=== PATIENT | female | born 1965 | race Caucasian/White ===

== ENCOUNTER → 2017-06-23 | Day surgery (SDC) | payer OTHER ==
[~2017-06-23] VITALS: Ht 170.2 cm; Wt 87.0 kg
[~2017-06-23] MED LIST: CHLORHEXIDINE GLUCONATE 2 % 1 PACK (2 CLOTHS) TOPICAL PRN; COMB.05D5 T-DERMAL; FAMOTIDINE 20 MG/2 ML VIAL ONE; INSULIN HUMAN REGULAR 1,000 UNITS/10 ML VIAL SQ PRN; LACTATED RINGER'S 1000 ML IV PRN; METOPROLOL TARTRATE 25 MG TAB PO PRN; MIDAZOLAM HCL 2 MG/2 ML VIAL ONE; POVIDONE IODINE 5% (ANTISEPSIS KIT) 4 APPLICATIONS EACH NARE PRN; SODIUM CHLORID 0.9% 500 ML IV PRN; SODIUM CHLORIDE 0.9% INJ 50 ML ONE; ceFAZolin 1,000 MG/NS 100 ML IV SCH; ceFAZolin INJ 1,000 MG VIAL ONE
--- NOTE | 2017-06-23 10:05 | PD.OP ---
Operative Report Date of Surgery: Jun 23, 2017 Preoperative Diagnosis: (1) Endometrial polyp (2) Postmenopausal bleeding Postoperative Diagnosis: (1) Postmenopausal bleeding (2) Endometrial polyp Procedure: hysteroscopy with polypectomy by MyoSure Lite Anesthesia: Dr. Jayda Concepcion by LMA Surgeon: Nerissa Vuong Conservation Science Officer(s): Yousuf Frank Surgeon: n/a Operation and Findings: Indications: [52 y/o with post-menopausal bleeding. Had endometrial biopsy in office which returned as "polypoid endometrium".-] Findings: Patient was found on hysteroscopic view to have [a small flat lesion in the anterior fundus of the uterus, included with the MyoSure curettings.-] Scant tissue returned on endocervical curettings. Procedure: Patient was brought to the OR and laid supine on the table. After inducing general anesthesia she was positioned in low stirrups in dorso- lithotomy position. An open-sided speculum was placed in the vagina after Betadine prep and time out. The anterior lip of the cervix was grasped with a single tooth tenaculum, and the cervix was dilated to accept a standard rigid hysteroscope after endocervical curettage. After priming the MyoSure device, hysteroscopic view confirmed the findings described above. No polyp per se was found. The MyoSure device was deployed to obtain endometrial curettings, with the flat small lesion noted included in the specimen. The procedure being complete, the instruments were removed, the patient was replaced supine and she was awakened. She was transferred to the PACU breathing on her own in stable condition. Sponge, needle, and instrument counts were correct. Nerissa Vuong MD Jun 23, 2017 10:05
[2017-06-23 10:30] VITALS: TEMP 97.6
[2017-06-23 11:07] VITALS: BP 126/80; PULSE 55; RESP 14; O2SAT 99
== END | disposition home or self-care (01) ==
LOC: PHSDC 06:52
PROVIDERS: ATTEND Obstetrics & Gynecology
DX: N84.0 Polyp of corpus uteri (principal); N95.0 Postmenopausal bleeding
CPT/HCPCS: 00952; 58558; 88305; J0690; J2250; J3010; J7120